=== PATIENT | male | born 1980 ===

== ENCOUNTER 2021-03-21 10:33 | Emergency (ER) | payer SELFPAY ==
[2021-03-21 10:48] VITALS: BP 156/105
--- NOTE | 2021-03-21 11:32 | XRay Report ---
XR ankle 3+V RT INDICATION / CLINICAL INFORMATION: ankle pain s/p fall. COMPARISON: None available. FINDINGS: There is a spiral type fracture of the distal tibia which extends to the level the elbow tibiotalar a rticulation. Medial malleolus fracture with medial clear space widening. Impression: 1. Raya type C fracture with medial malleolus fracture and deltoid ligamentous injury. Signer Name: Chato Finngean MD Signed: 03/21/2021 11:23 AM Workstation Name: [id number]
--- NOTE | 2021-03-21 11:51 | Emergency Department Report ---
ED Lower Extremity HPI - General Chief Complaint: Extremity Injury, Lower Stated Complaint: RIGHT ANKLE PAIN Time Seen by Provider: 03/21/21 10:49 Source: patient Mode of arrival: Ambulatory Limitations: No Limitations - History of Present Illness Initial Comments: This is a 40-year-old male nontoxic, well nourished in appearance, no acute signs of distress presents to the ED with c/o of right ankle pain 3 weeks. Patient stated that he had a mechanical trip and fall which twisted his right ankle. Patient denies any other injuries or trauma. Patient denies any numbness, tingling, fever, chills, nausea, vomiting, chest pain, shortness of breath, headache, stiff neck. Patient denies any joint swelling or joint redness. Patient denies decreased range of motion. Patient stated has decreased gait due to pain. Patient denies any allergies or significant past medical history. MD Complaint: ankle injury -: days(s) Injury: Ankle: Right Type of Injury: inversion Place: street/outdoors Severity: mild Severity scale (0 -10): 8 Improves With: immobilization Worsens With: weight bearing, movement, palpation Associated Symptoms: able to partially bear weight. denies: snap/pop sensation, swelling, numbness, tingling, unable to bear weight - Related Data Previous Rx's Medication Instructions Recorded Last Taken Type Naproxen 500 mg PO Q12H PRN #12 tablet 03/21/21 Unknown Rx Allergies Allergy/AdvReac Type Severity Reaction Status Date / Time No Known Allergies Allergy Verified 03/21/21 10:42 ED Review of Systems ROS: Stated complaint: RIGHT ANKLE PAIN Other details as noted in HPI Comment: All other systems reviewed and negative Constitutional: denies: chills, fever Eyes: denies: eye pain, eye discharge, vision change ENT: denies: ear pain, throat pain Respiratory: denies: cough, shortness of breath, wheezing Cardiovascular: denies: chest pain, palpitations Endocrine: no symptoms reported Gastrointestinal: denies: abdominal pain, nausea, diarrhea Genitourinary: denies: urgency, dysuria Musculoskeletal: denies: back pain, joint swelling, arthralgia Skin: denies: rash, lesions Neurological: denies: headache, weakness, paresthesias Psychiatric: denies: anxiety, depression Hematological/Lymphatic: denies: easy bleeding, easy bruising ED Past Medical Hx - Past Medical History Previous Medical History?: No - Surgical History Past Surgical History?: No - Medications Home Medications: Home Medications Medication Instructions Recorded Confirmed Last Taken Type Naproxen 500 mg PO Q12H PRN #12 tablet 03/21/21 Unknown Rx ED Physical Exam - General Limitations: No Limitations General appearance: alert, in no apparent distress - Head Head exam: Present: atraumatic, normocephalic - Eye Eye exam: Present: normal appearance - Neck Neck exam: Present: normal inspection, full ROM. Absent: lymphadenopathy - Respiratory Respiratory exam: Absent: respiratory distress - Cardiovascular Cardiovascular Exam: Present: regular rate - Extremities Exam Extremities exam: Present: full ROM, tenderness, normal capillary refill. Absent: pedal edema, joint swelling, calf tenderness - Expanded Lower Extremity Exam Right Hip exam: Present: normal inspection, full ROM. Absent: tenderness, swelling Upper Leg exam: Present: normal inspection, full ROM. Absent: tenderness, swelling Knee exam: Present: normal inspection, full ROM. Absent: tenderness, swelling Lower Leg exam: Present: normal inspection, full ROM. Absent: tenderness, swelling, abrasion, laceration, ecchymosis, deformity, crepidus, dislocation, erythema, palpable cord, Monty's sign Ankle exam: Present: full ROM, tenderness, deformity. Absent: swelling, abrasion, laceration, ecchymosis, crepidus, dislocation, erythema, anterior draw sign Foot/Toe exam: Present: normal inspection, full ROM. Absent: tenderness, swelling, abrasion, laceration, ecchymosis, deformity, crepidus, dislocation, erythema, amputation, puncture wound, foreign body, calcaneal tenderness, tenderness at base of 5th metatarsal, nail avulsion, subungual hematoma Neuro vascular tendon exam: Present: no vascular compromise Gait: Positive: observed and limited by pain - Back Exam Back exam: Present: normal inspection, full ROM. Absent: tenderness, CVA tenderness (R), CVA tenderness (L), muscle spasm, paraspinal tenderness, vertebral tenderness, rash noted - Neurological Exam Neurological exam: Present: alert, oriented X3 - Psychiatric Psychiatric exam: Present: normal affect, normal mood - Skin Skin exam: Present: warm, dry, intact, normal color. Absent: rash ED Course Vital Signs 03/21/21 10:43 Temperature 97.9 F Pulse Rate 104 H Respiratory 16 Rate Blood Pressure 156/105 [Left] O2 Sat by Pulse 95 Oximetry - Reevaluation(s) Reevaluation #1: 03/21/21 11:49 Patient is speaking in full sentences with no signs of distress noted. ED Lower Extremity MDM - Radiology Data [facility] [address] [place] [address] XRay Report Signed Patient: JUSTYNA QUINONES MR# : [id number] : 1980 Acct:[id number] Age/Sex: 40 / M ADM Date: 03/21/21 Loc: ED Attending Dr: Ordering Physician: KEHINDE LEAL NP Date of Service: 03/21/21 Procedure(s): XR ankle 3+V RT Accession Number(s): [id number] cc: KEHINDE LEAL NP Fluoro Time In Minutes: XR ankle 3+V RT INDICATION / CLINICAL INFORMATION: ankle pain s/p fall. COMPARISON: None available. FINDINGS: There is a spiral type fracture of the distal tibia which extends to the level the elbow tibiotalar articulation. Medial malleolus fracture with medial clear space widening. Impression: 1. Raya type C fracture with medial malleolus fracture and deltoid ligamentous injury. Signer Name: Chato Finnegan MD Signed: 03/21/2021 11:23 AM Workstation Name: [id number] Transcribed By: Dictated By: Chato Finnegan MD Electronically Authenticated By: Chato Finnegan MD Signed Date/Time: 03/21/21 1123 DD/ 1120 TD/TT: - Medical Decision Making This is a 40-year-old male that presents with right ankle fracture. Patient is stable and was examined by me. I referred patient to an orthopedic doctor for further evaluation for possible MRI. X-ray has been obtained and dictated by the radiologist. Patient is notified of the x-ray report with noted by the patient. Patient received a Tay OCL splint. Patient does have crutches that he became from home with. Post splint assessment: neurovasular intact; normal cap refill <2 second; normal sensation; denies decreaed sensation; normal ROM of digits. Patient was instructed to RICE therapy. Patient is discharged with Naproxen. At time of discharge, the patient does not seem toxic or ill in appearance. No acute signs of distress noted. Patient agrees to discharge treatment plan of care. No further questions noted by the patient. Critical care attestation.: If time is entered above; I have spent that time in minutes in the direct care of this critically ill patient, excluding procedure time. ED Disposition Clinical Impression: Closed right tibial fracture Qualifiers: Encounter type: initial encounter Tibia location: shaft Fracture morphology: spiral Fracture alignment: nondisplaced Qualified Code(s): S82.244A - Nondisplaced spiral fracture of shaft of right tibia, initial encounter for closed fracture Fracture of medial malleolus, right, closed Qualifiers: Encounter type: initial encounter Fracture alignment: nondisplaced Qualified Code(s): S82.54XA - Nondisplaced fracture of medial malleolus of right tibia, initial encounter for closed fracture Tear of deltoid ligament of right ankle Qualifiers: Encounter type: initial encounter Qualified Code(s): S93.421A - Sprain of deltoid ligament of right ankle, initial encounter Disposition: 01 HOME / SELF CARE / HOMELESS Is pt being admited?: No Does the pt Need Aspirin: No Condition: Stable Instructions: Cast or Splint Care, Adult, Tibial and Fibular Fractures Additional Instructions: Follow-up with a orthopedic doctor in 3-5 days or if symptoms worsen and continue return to emergency room as soon as possible. No physical activity that extremity until cleared by orthopedic doctor Prescriptions: Naproxen 500 mg PO Q12H PRN #12 tablet PRN Reason: Pain , Severe (7-10) Referrals: PRIMARY [facility]EMD [Referring] - 3-5 Days BETSY PEREZ MD [Staff Physician] - 3-5 Days Forms: Work/School Release Form(ED) Time of Disposition: 11:55
[2021-03-21] MEDS ORDERED: HYDROcodone/ACETAMINOPHEN 10-325MG TAB PO ONE (11:57)
== END 2021-03-21 13:36 | disposition home or self-care (01) ==
LOC: ED 10:33
DX: S82.54XA Nondisplaced fracture of medial malleolus of right tibia, initial encounter for closed fracture (principal); S82.244A Nondisplaced spiral fracture of shaft of right tibia, initial encounter for closed fracture; S91.011A Laceration without foreign body, right ankle, initial encounter; W01.0XXA Fall on same level from slipping, tripping and stumbling without subsequent striking against object, initial encounter; Y93.89 Activity, other specified; Y92.89 Other specified places as the place of occurrence of the external cause; Y99.8 Other external cause status
CPT/HCPCS: 99283